=== PATIENT | male | born 1950 | race Caucasian/White ===

== ENCOUNTER 2020-03-19 11:15 | Emergency (ER) | payer OTHER ==
[~2020-03-19] VITALS: Ht 190.5 cm; Wt 125.5 kg
[~2020-03-19 11:15] MED LIST: APIX5TAB3 PO; LEVO75TA PO; SIMV-42 PO; SOTA80TA73 PO
[2020-03-19 11:28] VITALS: BP 152/95
[2020-03-19] MEDS ORDERED: LIDOcaine 1% 30ml preserv. free vial IJ ONE (12:20)
== END 2020-03-19 14:10 | disposition home or self-care (01) ==
LOC: ER 11:16
DX: S61.011A Laceration without foreign body of right thumb without damage to nail, initial encounter (principal); S61.411A Laceration without foreign body of right hand, initial encounter; I48.91 Unspecified atrial fibrillation; E78.00 Pure hypercholesterolemia, unspecified; Z79.899 Other long term (current) drug therapy; W26.8XXA Contact with other sharp object(s), not elsewhere classified, initial encounter; Y93.89 Activity, other specified; Y92.89 Other specified places as the place of occurrence of the external cause; Y99.9 Unspecified external cause status
CPT/HCPCS: 12004; 73130; 99283

== ENCOUNTER 2020-03-21 08:50 | Emergency (ER) | payer OTHER ==
[~2020-03-21] VITALS: Ht 190.5 cm; Wt 122.7 kg
[2020-03-21 08:54] VITALS: BP 134/79
== END 2020-03-21 09:45 | disposition home or self-care (01) ==
LOC: ER 08:50
DX: S61.411D Laceration without foreign body of right hand, subsequent encounter (principal); I48.91 Unspecified atrial fibrillation; E78.00 Pure hypercholesterolemia, unspecified; Z72.89 Other problems related to lifestyle; Z79.899 Other long term (current) drug therapy; W01.0XXD Fall on same level from slipping, tripping and stumbling without subsequent striking against object, subsequent encounter
CPT/HCPCS: 99282

== ENCOUNTER 2020-04-03 10:36 | Emergency (ER) | payer OTHER ==
[~2020-04-03] VITALS: Ht 190.5 cm; Wt 123.7 kg
[2020-04-03 10:52] VITALS: BP 140/92
--- NOTE | 2020-04-03 11:05 | NUR ---
Sutures removed by ZANE Matthews
== END 2020-04-03 11:10 | disposition home or self-care (01) ==
LOC: ER 10:37
DX: S61.411D Laceration without foreign body of right hand, subsequent encounter (principal); E78.00 Pure hypercholesterolemia, unspecified; Z48.00 Encounter for change or removal of nonsurgical wound dressing; W01.0XXD Fall on same level from slipping, tripping and stumbling without subsequent striking against object, subsequent encounter
CPT/HCPCS: 99281